=== PATIENT | female | born 1995 | race African-American/Black ===

== ENCOUNTER 2023-06-19 07:58 | Outpatient (RCR) | payer OTHER, SELFPAY ==
[2023-06-19] VITALS (8 sets, daily range): BP systolic 112–149; BP diastolic 63–90
[2023-06-19 08:47] LABS: % Basophils 0.5 % (0-2); % Eosinophils 1.8 % (0-6); % Immature Granulocytes 0.3 % (0-0.5); % Lymphocytes 27.2 % (20.5-51.1); % Neutrophils 64.2 % (42.2-75.2); Absolute Eosinophils 0.1 10^3/uL (0-0.7); Absolute Lymphocytes 1.6 10^3/uL (1.2-3.4); Absolute Monocytes 0.4 10^3/uL (0.1-0.6); Absolute Neutrophils 3.8 10^3/uL (1.4-6.5); Hematocrit 34.5 % (37.0-47.0); Hemoglobin 11.5 g/dL (12.0-16.0); Mean Corp Hgb Conc. 33.3 g/dL (33.0-37.0); Mean Corpuscular Hgb 28.8 pg (27.0-31.0); Mean Corpuscular Volume 86.3 fL (81.0-99.0); Mean Platelet Volume 11.3 fL (7.4-10.4); Nucleated Red Blood Cells % 0 %; Platelet Count 251 10^3/uL (130-400); Red Cell Dist. Width 13.2 % (11.5-14.5)
[2023-06-19] MEDS: TYLENOL 650 MG PO (08:56)
[2023-06-19] MEDS: SOLU-MEDROL PF 51.6000000000000014 MG IV (08:56)
[2023-06-19] MEDS: NSS 500 IV (08:56)
[2023-06-19] MEDS: BENADRYL 51 MG IV (09:27)
[2023-06-19] MEDS: OCREVUS 520 MG IV (09:51)
== END 2023-06-20 09:20 | disposition home or self-care (01) ==
LOC: OID 07:58
PROVIDERS: ATTENDING PHYSICIAN Psychiatry & Neurology Neurology
DX: G35 Multiple sclerosis (principal); R90.89 Other abnormal findings on diagnostic imaging of central nervous system; H46.9 Unspecified optic neuritis
CPT/HCPCS: 85025; 96365; 96366; 96367; 96368; J2350

== ENCOUNTER → 2023-06-26 19:18 | Outpatient (REF) | payer OTHER, SELFPAY | LOC: MRI 3T 19:18 | PROVIDERS: ATTENDING PHYSICIAN Psychiatry & Neurology Neurology; FAMILY PHYSICIAN Family Medicine | DX: G35 Multiple sclerosis (principal) | CPT/HCPCS: 70553; 72156; A9575 ==

== ENCOUNTER → 2023-06-29 17:27 | Outpatient (REF) | payer OTHER, SELFPAY | LOC: MRI 3T 17:27 | PROVIDERS: ATTENDING PHYSICIAN Psychiatry & Neurology Neurology; FAMILY PHYSICIAN Family Medicine | DX: G35 Multiple sclerosis (principal) | CPT/HCPCS: 72157; A9575 ==

== ENCOUNTER 2023-12-13 08:07 | Outpatient (RCR) | payer OTHER, SELFPAY ==
[2023-12-13] VITALS (8 sets, daily range): BP systolic 127–159; BP diastolic 79–106
[2023-12-13] MEDS: INJECTAFER 265 MG IV (08:24)
[2023-12-13] MEDS: NSS 500 IV (09:34)
[2023-12-13] MEDS: SOLU-MEDROL PF 51.6 MG IV (09:35)
[2023-12-13] MEDS: TYLENOL 650 MG PO (10:03)
[2023-12-13] MEDS: BENADRYL 51 MG IV (10:03)
[2023-12-13] MEDS: OCREVUS 520 MG IV (10:33)
--- NOTE | 2023-12-13 13:24 | PTCARENOTE ---
pt's orders written for 60 minute observation post Ocrevus. Pt states 'I never wait, I've been on it forever.' Pt waiting approximately 25 minutes after Ocrevus infusion completed and asking to leave. Offers no complaints, stating 'I feel fine.'
IV removed, and d/c to home.
== END 2023-12-14 09:35 | disposition home or self-care (01) ==
LOC: OID 08:07
PROVIDERS: ATTENDING PHYSICIAN Psychiatry & Neurology Neurology
DX: G35 Multiple sclerosis (principal); R90.89 Other abnormal findings on diagnostic imaging of central nervous system; H46.9 Unspecified optic neuritis
CPT/HCPCS: 96367; 96413; 96415; J1439; J2350

== ENCOUNTER 2024-06-13 08:01 | Outpatient (RCR) | payer OTHER, SELFPAY ==
[2024-06-13] VITALS (8 sets, daily range): BP systolic 117–137; BP diastolic 64–89
[2024-06-13] MEDS: BENADRYL 51 MG IV (08:27)
[2024-06-13] MEDS: NSS 500 IV (08:28)
[2024-06-13 08:34] LABS: % Basophils 0.3 % (0-2); % Eosinophils 1.2 % (0-6); % Immature Granulocytes 0.1 % (0-0.5); % Lymphocytes 22.9 % (20.5-51.1); % Neutrophils 70.5 % (42.2-75.2); Absolute Eosinophils 0.1 10^3/uL (0-0.7); Absolute Lymphocytes 1.7 10^3/uL (1.2-3.4); Absolute Monocytes 0.4 10^3/uL (0.1-0.6); Absolute Neutrophils 5.1 10^3/uL (1.4-6.5); Hematocrit 38.3 % (37.0-47.0); Hemoglobin 12.8 g/dL (12.0-16.0); Mean Corp Hgb Conc. 33.4 g/dL (33.0-37.0); Mean Corpuscular Hgb 29.6 pg (27.0-31.0); Mean Corpuscular Volume 88.5 fL (81.0-99.0); Mean Platelet Volume 11.2 fL (7.4-10.4); Platelet Count 225 10^3/uL (130-400); Red Blood Cell Count 4.33 10^6/uL (4.20-5.40); White Blood Cell Count 7.2 10^3/uL (4.8-10.8)
[2024-06-13] MEDS: TYLENOL 650 MG PO (08:54)
[2024-06-13] MEDS: SOLU-MEDROL PF 51.6 MG IV (09:01)
[2024-06-13] MEDS: OCREVUS 520 MG IV (09:32)
== END 2024-06-14 09:59 | disposition home or self-care (01) ==
LOC: OID 08:01
PROVIDERS: ATTENDING PHYSICIAN Psychiatry & Neurology Neurology
DX: G35 Multiple sclerosis (principal); R90.89 Other abnormal findings on diagnostic imaging of central nervous system; H46.9 Unspecified optic neuritis
CPT/HCPCS: 85025; 96365; 96367; J2350

== ENCOUNTER 2024-12-17 08:06 | Outpatient (RCR) | payer OTHER, SELFPAY ==
[2024-12-17] VITALS (7 sets, daily range): BP systolic 121–140; BP diastolic 61–79
[2024-12-17] MEDS: SOLU-MEDROL PF 51.6 MG IV (09:19)
[2024-12-17] MEDS: TYLENOL 650 MG PO (09:19)
[2024-12-17] MEDS: NSS 500 IV (09:20)
[2024-12-17 09:28] LABS: Hematocrit 39.2 % (37.0-47.0); Hemoglobin 13.2 g/dL (12.0-16.0); Mean Corp Hgb Conc. 33.7 g/dL (33.0-37.0); Mean Corpuscular Volume 88.7 fL (81.0-99.0); Platelet Count 252 10^3/uL (130-400); Red Cell Dist. Width 12.7 % (11.5-14.5)
[2024-12-17] MEDS: BENADRYL 51 MG IV (09:49)
[2024-12-17] MEDS: OCREVUS 520 MG IV (10:20)
[2024-12-17 14:13] LABS: ALT (SGPT) 19 U/L (0-35); AST (SGOT) 20 U/L (14-36); Albumin 4.3 g/dl (3.5-5.0); Alkaline Phosphatase 66 U/L (38-126); Blood Urea Nitrogen 14 mg/dl (7-17); Calcium 9.2 mg/dl (8.4-10.2); Carbon Dioxide 22 mmol/L (22-30); Chloride 110 mmol/L (98-107); Glucose 103 mg/dl (70-99); Potassium 4.3 mmol/L (3.5-5.1); Sodium 140 mmol/L (135-145); Total Protein 6.9 g/dl (6.3-8.2); eGFR > 60.00
[2024-12-17 14:48] LABS: Ferritin 24.1 ng/ml (6.24-137)
== END 2024-12-18 08:34 | disposition home or self-care (01) ==
LOC: OID 08:06
PROVIDERS: ATTENDING PHYSICIAN Psychiatry & Neurology Neurology
DX: G35 Multiple sclerosis (principal); G35.D Multiple sclerosis, unspecified (principal); R90.89 Other abnormal findings on diagnostic imaging of central nervous system; H46.9 Unspecified optic neuritis; R79.0 Abnormal level of blood mineral
CPT/HCPCS: 36415; 80053; 82652; 82728; 85025; 96367; 96413; 96415; J2350